=== PATIENT | female | born 1950 | race Caucasian/White ===

== ENCOUNTER 2020-11-23 11:23 | Inpatient (IN) | payer OTHER, MEDICAID ==
[~2020-11-23] VITALS: Ht 160 cm; Wt 76.7 kg
[~2020-11-23 11:23] MED LIST: ADULT LOW DOSE81 MG; AUGMENTIN 875875 MG PO; COREG6.25 MG PO; GLUMETZA1000; GLYBURIDE 5 MG T5 M1 OR; LIPITOR40 MG; LOSARTAN-HCTZ1 EACH; MOBIC7.5 MG; NEURONTIN 300M300 M2 PO; NITROSTAT0.4 M1 SUBLING; NORCO 5-325 TA1 EACH PO; PROAIR HFA8.5 GM PO; PROZAC 20 MG20 MG; PROZAC40 MG; TESSALON PERLE100 MG PO; ULTRAM 50MG TAB50 MG PO; ZANTAC 150MG T150 M1
[2020-11-23 11:25] VITALS: BP 85/42
[2020-11-23 11:46] LABS: ABSOLUTE LYMPHOCYTES 0.6 thou/uL (0.8-5.3); ABSOLUTE MONOCYTES 0.2 thou/uL (0.0-1.2); ABSOLUTE NEUTROPHILS 3.2 thou/uL (1.6-8.1); BASOPHILS 0.5 %; HEMATOCRIT 37.5 % (37.0-47.0); LYMPHOCYTES 15.1 %; MCH 24.7 pg (26.0-34.0); MCV 77.2 fL (80.0-100.0); MONOCYTES 5.5 %; MPV 8.6 fl. (7.2-11.1); NUCLEATED RBCS 0 /100WBC; PLATELET COUNT* 144 thou/uL (150-400); POLYS 78.9 %; RBC 4.86 mil/uL (4.20-5.00); RDW-CV 16.3 % (10.5-14.5); WBC 4.1 thou/uL (4.0-11.0)
[2020-11-23 11:55] LABS: CALCIUM 8.8 mg/dL (8.5-10.1); CREATININE 1.7 mg/dL (0.6-1.3); POTASSIUM 3.5 mmol/L (3.5-5.1)
[2020-11-23 12:00] LABS: ALBUMIN 3.1 g/dL (3.4-5.0); TOTAL BILIRUBIN 0.5 mg/dL (<0.1-1.0); TOTAL PROTEIN 7.4 g/dL (6.4-8.2)
[2020-11-23] MEDS ORDERED: JANUMET 50-1,01 EACH PO (12:09)
[2020-11-23] MEDS ORDERED: JARDIANCE10 MG PO (12:09)
[2020-11-23 16:18] VITALS: BP 104/53
--- NOTE | 2020-11-23 17:10 | EKG ---
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
[2020-11-23 18:41] LABS: URINE BILIRUBIN NEGATIVE (Negative); URINE BLOOD NEGATIVE (Negative); URINE CLARITY CLEAR; URINE COLOR YELLOW; URINE GLUCOSE-RANDOM 3+ (Negative); URINE KETONES NEGATIVE (Negative); URINE LEUKOCYTES-REFLEX NEGATIVE (Negative); URINE NITRITE-REFLEX NEGATIVE (Negative); URINE PROTEIN NEGATIVE (Negative); URINE UROBILINOGEN 0.2 E.U./dl (0.2-1.0)
[2020-11-23 19:45] VITALS: BP 113/54
[2020-11-23 23:08] VITALS: BP 124/53
[2020-11-24 00:44] VITALS: BP 124/56
[2020-11-24 05:11] VITALS: BP 131/47
[2020-11-24 08:00] VITALS: BP 115/71
[2020-11-24 08:27] LABS: ABSOLUTE LYMPHOCYTES 0.5 thou/uL (0.8-5.3); ABSOLUTE MONOCYTES 0.2 thou/uL (0.0-1.2); BASOPHILS 0.1 %; HEMATOCRIT 33.4 % (37.0-47.0); LYMPHOCYTES 13.3 %; MCH 25.1 pg (26.0-34.0); MCHC 32.9 g/dL (28.0-37.0); MCV 76.2 fL (80.0-100.0); MONOCYTES 6.1 %; MPV 8.8 fl. (7.2-11.1); NUCLEATED RBCS 0 /100WBC; PLATELET COUNT* 126 thou/uL (150-400); POLYS 80.5 %; RBC 4.39 mil/uL (4.20-5.00); RDW-CV 16.5 % (10.5-14.5); WBC 3.8 thou/uL (4.0-11.0)
[2020-11-24 08:52] LABS: CALCIUM 8.3 mg/dL (8.5-10.1); CREATININE 1.1 mg/dL (0.6-1.3); POTASSIUM 3.7 mmol/L (3.5-5.1)
[2020-11-24 12:00] VITALS: BP 119/51
--- NOTE | 2020-11-24 12:39 | 2DMMODE ---
[place] [address] 2 D/M-MODE ECHOCARDIOGRAM Name: GM MITCHELL Room: [address] IN [facility]#: [id number] Admission: 11/23/20 Attend Phys: Mando Vidales, Discharge: Date of : 48 Date of Service: 11/24/20 1239 Report #: [id number] THIS REPORT FOR: cc: Tete Gutierrez,Domenic Benavides MD [facility] ~ APPROVED REPORT Study performed: 11/24/2020 10:55:54 EXAM: Comprehensive 2D, Doppler, and color-flow Echocardiogram Patient Location: In-Patient Room #: [facility] Status: routine BSA: 1.64 HR: 58 bpm BP: 131/47 mmHg Rhythm: NSR Other Information Study Quality: Good Indications Hypotension 2D Dimensions IVSd: 8.96 (7-11mm) LVOT Diam: 18.67 (18-24mm) LVDd: 48.05 mm PWd: 8.21 (7-11mm) Ascending Ao: 30.37 (22-36mm) LVDs: 27.92 (25-40mm) Aortic Root: 28.04 mm Volumes Left Atrial Volume (Systole) LA ESV Index: 44.70 mL/m2 Aortic Valve AoV Peak Kevin.: 1.56 m/s AO Peak Gr.: 9.79 mmHg LVOT Max P.04 mmHg AO Mean Gr.: 4.14 mmHg LVOT Mean P.46 mmHg LVOT Max V: 1.23 m/s AO V2 VTI: 35.11 cm LVOT Mean V: 0.70 m/s JAMIE (VTI): 2.24 cm2 LVOT V1 VTI: 28.68 [place] [address] 2 D/M-MODE ECHOCARDIOGRAM Name: GM MITCHELL Room: [address]#: [id number] Admission: 11/23/20 Attend Phys: Mando Vidales, Discharge: Date of : 48 Date of Service: 11/24/20 1239 Report #: [id number] Mitral Valve E/A Ratio: 2.78 MV Decel. Time: 257.55 ms MV E Max Kevin.: 1.00 m/s MV PHT: 74.69 ms MVA (PHT): 2.95 cm2 TDI E/Lateral E': 11.11 E/Medial E': 12.50 Medial E' Kevin.: 0.08 m/s Lateral E' Kevin.: 0.09 m/s Pulmonary Valve PV Peak Kevin.: 1.06 m/s PV Peak Gr.: 4.49 mmHg Tricuspid Valve RAP Estimate: 5.00 mmHg TR Peak Gr.: 23.19 mmHg RVSP: 28.00 mmHg PA Pressure: 28.00 mmHg Left Ventricle The left ventricle is normal size. There is normal LV segmental wall motion. There is normal left ventricular wall thickness. Left ventricular systolic function is normal. LVEF is 60-65%. Transmitral Doppler flow pattern suggests restrictive physiology. Right Ventricle The right ventricle is normal size. The right ventricular systolic function is normal. Atria Left atrium is moderately dilated. The right atrium size is normal. Aortic Valve The aortic valve is normal in structure. No aortic regurgitation is present. There is no aortic valvular stenosis. Mitral Valve There is mitral annular calcification. Trace mitral regurgitation. No evidence of mitral valve stenosis. Tricuspid Valve The tricuspid valve is normal in structure. Trace tricuspid regurgitation. [place] [address] 2 D/M-MODE ECHOCARDIOGRAM Name: PAULA,OPAChristopher Hayward Room: [address]#: [id number] Admission: 11/23/20 Attend Phys: Mando Vidales, Discharge: Date of : 48 Date of Service: 11/24/20 1239 Report #: [id number] Pulmonic Valve The pulmonary valve is normal in structure. There is no pulmonic valvular regurgitation. Great Vessels The aortic root is normal in size. IVC is normal in size and collapses >50% with inspiration. Pericardium There is no pericardial effusion. <Conclusion> The left ventricle is normal size. There is normal left ventricular wall thickness. Left ventricular systolic function is normal. LVEF is 60-65%. Transmitral Doppler flow pattern suggests restrictive physiology. There is normal LV segmental wall motion. Left atrium is moderately dilated. Trace mitral regurgitation. Trace tricuspid regurgitation. No pulmonary hypertension. IVC is normal in size and collapses >50% with inspiration. <ELECTRONICALLY SIGNED> By: Domenic Bautista MD, FACC 11/24/20 1239 1239 1239 Domenic Bautista MD, FACC /INF
--- NOTE | 2020-11-24 14:35 | NUR ---
Covid positive. Spoke with Pt's dtr via phone. Pt resides at home, grandson lives with her. Pt is normally independent. No DME. No home o2. Hx of HH post knee replacement several years ago. No hx of SNF. Pt is not vaccinated, per dtr, Pt was scheduled to get the shot next week. Pt's grandson is also covid positive, but doing ok. Pt currently on 2L o2, continue to wean. Ex ox at dc to assess for home o2 needs.
[2020-11-24 16:00] VITALS: BP 124/85
--- NOTE | 2020-11-24 17:05 | NUR ---
PATIENT RESTING IN BED. PATIENT DENIES ANY PAIN. PATIENT HAS HAD INCREASED OXYGEN NEEDS TODAY AND AT 7L/NC. PATIENT IS SHORT OF AIR WITH EXERTION. PATIENT HAS GOOD APPETITE. PATIENT DENIES ANY NEEDS AT THIS TIME. CALL LIGHT WITHIN REACH.
[2020-11-24 20:00] VITALS: BP 135/55
[2020-11-25 00:34] VITALS: BP 111/48
[2020-11-25 04:21] VITALS: BP 114/60
[2020-11-25 04:41] LABS: HEMATOCRIT 32.6 % (37.0-47.0); HEMOGLOBIN 10.7 gm/dL (12.0-15.0); MCH 25.2 pg (26.0-34.0); MCV 76.4 fL (80.0-100.0); MPV 8.9 fl. (7.2-11.1); RBC 4.27 mil/uL (4.20-5.00); RDW-CV 16.3 % (10.5-14.5); WBC 9.2 thou/uL (4.0-11.0)
[2020-11-25 05:13] LABS: CALCIUM 8.5 mg/dL (8.5-10.1); POTASSIUM 3.7 mmol/L (3.5-5.1)
[2020-11-25 08:00] VITALS: BP 125/63
[2020-11-25 12:00] VITALS: BP 137/53
--- NOTE | 2020-11-25 15:22 | NUR ---
Pt on 7L. Ex ox completed yesterday, Pt requiring 10L o2 with activity, continue to wean. Anticipate dc in 1-2 days. Updated dtr
[2020-11-25 17:46] VITALS: BP 126/62
--- NOTE | 2020-11-25 17:48 | NUR ---
PATIENT RESTING IN BED. PATIENT DENIES ANY PAIN. PATIENT IS UP AD [place]AY[place] TO [facility]. PATIENT IS ON 7L/NC BUT DOES DESAT INTO THE 80'S WITH ACTIVITY. PATIENT HAS FAIR APPETITE. PATIENT DENIES ANY NEEDS AT THIS TIME. CALL LIGHT WITHIN REACH.
[2020-11-26] VITALS (12 sets, daily range): BP systolic 79–151; BP diastolic 35–68
[2020-11-26 08:37] LABS: CALCIUM 8.5 mg/dL (8.5-10.1); CREATININE 0.8 mg/dL (0.6-1.3); POTASSIUM 3.5 mmol/L (3.5-5.1)
[2020-11-26 08:46] LABS: BE 1.9 mmol/L (-2 to +3); pH 7.458 (7.340-7.450)
--- NOTE | 2020-11-26 10:00 | NUR ---
PATIENT HAD REPORTS OF CHEST PAIN AT SHIFT CHANGE. STATED PRESSURE TO MIDDLE CHEST 6/10. EKG OBTAINED AND DR LYONS NOTIFIED. PATIENT GIVEN 1 NITRO SUBL BUT BLOOD PRESSURE AND O2 SATS DROPPED. RAPID RESPONSE CALLED. RT PLACED PATIENT ON NRB MASK AND EVENTUALLY HHFC. CHEST XRAY, ABG'S, REPEAT EKG DONE. CARDIOLOGY CONSULTED AND ROUNDED ON PATIENT. PATIENT GIVEN TYLENOL, PROTONIX AND DECADRON ORDERED. PATIENT STATES SOME RELIEF AND IS RESTING COMFORTABLY IN BED AT THIS TIME.
[2020-11-26 12:11] LABS: CHOLESTEROL 120 mg/dL (<200); HDL CHOLESTEROL 44 mg/dL (>40); LDL CHOLESTEROL 58 mg/dL (<100); SERUM ASSESSMENT Clear; TC:HDL 2.7 Ratio (Not establshd); TRIGLYCERIDE 92 mg/dL (<150); VLDL 18 mg/dL (<40)
--- NOTE | 2020-11-26 14:53 | NUR ---
Anticipate dc in a few days. Rapid response called, cards consulted. On 7L, wean, repeat ex ox at dc.
--- NOTE | 2020-11-26 16:19 | EKG ---
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
--- NOTE | 2020-11-26 17:23 | NUR ---
PATIENT IS RESTING IN BED AT THIS TIME. PATIENT IS UP STANDBY ASSIST TO COMMODE. PATIENT IS UP HEATED HIGH FLOW WITH SATS IN THE UPPER 90'S. PATIENT HAD COMPLAINTS OF CHEST PAIN THIS AM, WHICH HAS RESOLVED AT THIS TIME. PATIENT REFUSED BREAKFAST AND LUNCH BUT IS CURRENTLY EATING DINNER. PATIENT DENIES ANY NEEDS AT THIS TIME. CALL LIGHT WITHIN REACH.
[2020-11-27 00:15] VITALS: BP 116/51
--- NOTE | 2020-11-27 04:27 | NUR ---
PT RESTED WELL ALL SHIFT, NO REPORTS OF ANY CHEST PAIN OR DISCOMFORT. HHFC 20L ON WHILE SLEEPING, SINUS RHYTHM/CHRIS ON MONTIOR. RECEIVED MEDS SCHEDULED. NO NEED FOR ANY PAIN OR NAUSEA MEDS. WILL CONTINUE TO MONITOR.
[2020-11-27 04:34] VITALS: BP 138/55
[2020-11-27 05:22] LABS: HEMATOCRIT 32.7 % (37.0-47.0); HEMOGLOBIN 10.9 gm/dL (12.0-15.0); MCH 25.5 pg (26.0-34.0); MCHC 33.5 g/dL (28.0-37.0); MCV 76.2 fL (80.0-100.0); MPV 8.8 fl. (7.2-11.1); RBC 4.28 mil/uL (4.20-5.00); RDW-CV 16.4 % (10.5-14.5); WBC 8.4 thou/uL (4.0-11.0)
[2020-11-27 05:42] LABS: CALCIUM 8.2 mg/dL (8.5-10.1); CREATININE 0.9 mg/dL (0.6-1.3); POTASSIUM 3.1 mmol/L (3.5-5.1)
[2020-11-27 08:00] VITALS: BP 97/55
[2020-11-27 12:30] VITALS: BP 140/86
--- NOTE | 2020-11-27 14:39 | EKG ---
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1950 Requested By: Gavin Melton Order Number: [id number] Minna MD: Shayne Cain Measurements Intervals [place] Rate: 138 P: [place]: QRS: 39 QRSD: 83 T: -84 QT: 288 QTc: 437 Interpretive Statements Atrial fibrillation Nonspecific repol abnormality, diffuse leads Baseline wander in lead(s) V1,V2 Compared to ECG 11/26/2020 09:15:29 Early repolarization now present Atrial fibrillation is noted Sinus rhythm no longer present ST (T wave) deviation no longer present Electronically Signed On 11-27-2020 14:39:29 CDT by Shayne Cain [email or web address] <ELECTRONICALLY SIGNED> By: Shayne Cain MD, [facility] 11/27/20 1439 1204 1204 Shayne Cain MD, [facility] /EPI
--- NOTE | 2020-11-27 15:04 | NUR ---
Pt up to 25-30L. Updated Pt's dtr. No weekend dc planned.
[2020-11-27 16:40] VITALS: BP 117/75
--- NOTE | 2020-11-27 19:29 | NUR ---
RECEIVED RPEORT AROUND 0715. ASSUMED CARE. VS AND ASSESSMENT CHARTED. IV INTACT RIGHT AC, RIGHT FOREARM. HEART MONITOR ATTACHED AT AFIB. MEDS GIVEN PER MAR. HOURLY ROUNDING PERFORMED. FAMILY UPDATED. ISOLATION INTACT. CALL LIGHT WITH IN REACH.
[2020-11-27 20:33] VITALS: BP 117/80
[2020-11-28 00:23] VITALS: BP 117/72
--- NOTE | 2020-11-28 04:25 | NUR ---
AFIB STILL MONITORED, AMIODARONE DRIP AT 17ML/HR - HR 100-110 THIS SHIFT. SHE IS RESTING COMFORTABLY. HHFC AT 95%. SHE IS UP STANDBY TO RESTROOM. RECEIVED ALL MEDS SCHEDULED. SINUS TACH ON MONITOR.
[2020-11-28 04:35] VITALS: BP 138/80
[2020-11-28 08:00] VITALS: BP 145/93
[2020-11-28 10:50] LABS: ALBUMIN 2.1 g/dL (3.4-5.0); CALCIUM 8.3 mg/dL (8.5-10.1); CREATININE 0.8 mg/dL (0.6-1.3); POTASSIUM 3.5 mmol/L (3.5-5.1); TOTAL PROTEIN 6.1 g/dL (6.4-8.2)
[2020-11-28 12:28] VITALS: BP 132/67
[2020-11-28 16:00] VITALS: BP 136/69
--- NOTE | 2020-11-28 21:39 | NUR ---
I ASSUMED CARE OF THE PATIENT AT 0700. SHE IS ALERT AND ORIENTED X4 AND IS UP AD GAYLE. BED IS IN THE LOW LOCKED POSITION AND CALL LIGHT IS IN REACH. PATIENT NEEDS ARE MADE DURING HOURLY ROUNDING AND PAIN IS MANAGED WITH PRN MEDS. IN TOUCH WITH DAUGHTER FROM [place] TODAY. BLOOD GLUCOSE IS MONITORED. SHE HAD A NICE LONG NAP TODAY AND OXYGENATION WAS MAINTAINED. DIET IS POOR, BUT SHE LIKES FRUIT CUPS AND SHERBET. AMIODARONE DRIP IS RUNNING. CARDIOLOGY SAW THE PATIENT. WILL CONTINUE TO MONITOR.
[2020-11-28 21:45] VITALS: BP 144/81
[2020-11-29 00:34] VITALS: BP 140/78
--- NOTE | 2020-11-29 03:44 | NUR ---
ASSUMED PT CARE AT APPROX 1930. PT IS A/OX4. VSS. PT IS TRACING AFIB ON THE SUPERVISOR SAWMILL. PT IS ON AMIODARONE GTT. HR IS CONTROLLED BETWEEN 80-90BPM. PT IS ON HHFNC 30L/FIO2 100%. PT O2 SATS DECREASE TO 88-90% WHILE SLEEPING. PT USED CALL LIGHT TO NOTIFY STAFF THAT HER IV IN THE RFA "CAME OUT AND WAS BLEEDING." NEW IV PLACED TO LAC, 22G. PT RESTED DURING THE NOC. NO C/O VOICED. MEDICATIONS ADMINISTERED PRESCRIBED. HOURLY ROUNDS COMLETE CHARTED. FALL PRECAUTIONS IN PLACE FOR SAFETY. CALL LIGHT WITHIN REACH. NO ACUTE CHANGES THIS SHIFT. WILL CONT. TO MONITOR.
[2020-11-29 04:18] VITALS: BP 124/86
[2020-11-29 08:00] VITALS: BP 138/78
[2020-11-29 12:35] VITALS: BP 120/77
[2020-11-29 18:32] VITALS: BP 134/83
[2020-11-29 21:47] VITALS: BP 137/96
--- NOTE | 2020-11-29 21:50 | NUR ---
patient had a quiet day. remains on heated melva flow oxygen. patient says she feels better today. Did complain of headache in the evening. Patient rests in bed, but uses bsc as needed. Continue to monitor patient. atrial fibrillation continues. amiodarone drip off today. Started on po.
[2020-11-30] VITALS: BP 134/71
[2020-11-30 04:00] VITALS: BP 130/75
[2020-11-30 04:26] LABS: pH 7.469 (7.340-7.450)
[2020-11-30 04:28] LABS: PO2 55.7 mmHg (75.0-100.0)
[2020-11-30 04:36] LABS: HEMATOCRIT 35.5 % (37.0-47.0); HEMOGLOBIN 11.6 gm/dL (12.0-15.0); MCH 24.8 pg (26.0-34.0); MCHC 32.7 g/dL (28.0-37.0); MCV 75.9 fL (80.0-100.0); MPV 8.8 fl. (7.2-11.1); NUCLEATED RBCS 0 /100WBC; PLATELET COUNT* 289 thou/uL (150-400); RBC 4.68 mil/uL (4.20-5.00); RDW-CV 16.5 % (10.5-14.5); WBC 12.6 thou/uL (4.0-11.0)
[2020-11-30 05:03] LABS: CALCIUM 8.2 mg/dL (8.5-10.1); CREATININE 0.9 mg/dL (0.6-1.3); POTASSIUM 3.5 mmol/L (3.5-5.1); TOTAL BILIRUBIN 0.5 mg/dL (<0.1-1.0); TOTAL PROTEIN 6.1 g/dL (6.4-8.2)
[2020-11-30 06:20] LABS: ABSOLUTE LYMPHOCYTES 0.6 thou/uL (0.8-5.3); ABSOLUTE MONOCYTES 0.6 thou/uL (0.0-1.2); ABSOLUTE NEUTROPHILS 11.3 thou/uL (1.6-8.1); ANISOCYTOSIS 1+; HYPOCHROMASIA 1+; OVALOCYTES 1+; PLATELET ESTIMATE ADEQUATE; POIKILOCYTOSIS 1+
--- NOTE | 2020-11-30 06:59 | NUR ---
Patient is pleasant and slept well. Alert and orientated. Switched from opti flow to BIPAP for better oxygination. Stand by assist. Will continue to care.
--- NOTE | 2020-11-30 10:53 | EKG ---
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 : 1950 Requested By: Hiral Ryan Order Number: [id number] Reading MD: Terrence Gordon Measurements Intervals [place] Rate: 111 P: [place]: QRS: 34 QRSD: 79 T: 228 QT: 369 QTc: 502 Interpretive Statements Atrial fibrillation Borderline repolarization abnormality Prolonged QT interval Compared to ECG 11/27/2020 12:04:37 Prolonged QT interval now present rate has slowed Electronically Signed On 11-30-2020 10:53:13 CDT by Terrence Gordon [email or web address] <ELECTRONICALLY SIGNED> By: eTrrence Gordon MD, [facility] 11/30/20 1053 1044 1044 Terrence Gordon MD, [facility] /EPI
[2020-11-30 12:00] VITALS: BP 151/89
--- NOTE | 2020-11-30 14:12 | NUR ---
Nutrition: Pt admitted to COVID unit. Assessed for LOS. Spoke with her RN. Pt is not eating much. RN agreed to try supplement - RD will order. Regular diet. Wt: 136#. H/o HTN, afib. Labs: alb 2, prealb 10.8, BG 110-244. Inadequate oral intake R/T poor appetite AEB RN report. Glucerna shakes daily. GOALS: appetite/intake increase to >60% of meals/supplements, no wt loss. Mild risk.
--- NOTE | 2020-11-30 15:15 | NUR ---
MOVE PATIENT TO ROOM 103 ON HIGH FLOW 55 AT 100%.
[2020-11-30 16:00] VITALS: BP 122/62
--- NOTE | 2020-11-30 16:01 | NUR ---
Pt o2 needs up to 50L. Eating well, in good spirits. Updated Pt's dtr.
--- NOTE | 2020-11-30 18:54 | NUR ---
PATIENT HAD A QUIET DAY. REMINS ON O2 HIGH FLOW 55 AND 100 %. PATIENT IS VERY PLEASANT, AND RESTING QUIETLY MOST OF THE DAY. IV PATIENT LAC.
[2020-11-30 19:30] VITALS: BP 119/63
[2020-12-01 00:47] VITALS: BP 140/67
[2020-12-01 04:29] VITALS: BP 140/80
--- NOTE | 2020-12-01 04:32 | NUR ---
ASSUMED CARE FROM DAY SHIFT PT RESTING IN BED WITH OPTIFLOW SAT 95% DENIES SOA , UP TO BSC SAT DECREASED TO 86 % . HR 80 FARM OPERATIONS TECHNICAL DIRECTOR SHOWS AFIB. BIPAP PLACED 100 % SAT 94 %. PT SAT DECREASED 87 % AFTER REQUESTING WATER TO DRINK. SAT% 87-90 PT RESTED WELL THROUGHOUT HOURLY ROUNDS,WILL REPORT CHANGES.
[2020-12-01 08:00] VITALS: BP 118/70
[2020-12-01 12:00] VITALS: BP 112/74
--- NOTE | 2020-12-01 15:14 | NUR ---
Pt doing worse today. On bipap 55L 100% fio2. ? need for intubation.
[2020-12-01 16:00] VITALS: BP 117/63
[2020-12-02] VITALS (8 sets, daily range): BP systolic 123–152; BP diastolic 50–84
[2020-12-02 05:05] LABS: ABSOLUTE LYMPHOCYTES 0.3 thou/uL (0.8-5.3); ABSOLUTE MONOCYTES 0.4 thou/uL (0.0-1.2); ABSOLUTE NEUTROPHILS 14.7 thou/uL (1.6-8.1); BASOPHILS 0.2 %; HEMATOCRIT 34.2 % (37.0-47.0); HEMOGLOBIN 11.4 gm/dL (12.0-15.0); LYMPHOCYTES 2.2 %; MCH 25.1 pg (26.0-34.0); MCHC 33.4 g/dL (28.0-37.0); MCV 75.2 fL (80.0-100.0); MONOCYTES 2.3 %; NUCLEATED RBCS 0 /100WBC; PLATELET COUNT* 237 thou/uL (150-400); POLYS 95.3 %; RBC 4.55 mil/uL (4.20-5.00); RDW-CV 16.4 % (10.5-14.5); WBC 15.5 thou/uL (4.0-11.0)
[2020-12-02 05:45] LABS: ALBUMIN 2.3 g/dL (3.4-5.0); CALCIUM 8.3 mg/dL (8.5-10.1); CREATININE 0.9 mg/dL (0.6-1.3); MAGNESIUM 1.8 mg/dL (1.8-2.4); POTASSIUM 3.3 mmol/L (3.5-5.1); TOTAL BILIRUBIN 0.7 mg/dL (<0.1-1.0); TOTAL PROTEIN 5.9 g/dL (6.4-8.2)
--- NOTE | 2020-12-02 11:00 | NUR ---
The patient is alert.Able to make needs known. AFIB on the monitor. She was sitting in the recliner. Call light within reach. Stand by to the BSC.
[2020-12-02 15:17] LABS: POTASSIUM 3.8 mmol/L (3.5-5.1)
[2020-12-02 15:55] LABS: CALCIUM 8.8 mg/dL (8.5-10.1)
--- NOTE | 2020-12-02 16:02 | NUR ---
Pt stable on bipap 60L 100% fio2.
[2020-12-03] VITALS (62 sets, daily range): BP systolic 77–138; BP diastolic 49–82
--- NOTE | 2020-12-03 02:53 | NUR ---
Pt noted to b edesaturating into lower 80s on BIPAP settings of AVAPS. RT notified, mask adjusted several times, and replaced. Pt. switched to heated HF as well at 60L/100% FiO2. O2 sats remain in the low 90's. Dr. Stephen notified and orders received to chage BIPAP settings: AVAPS tvol 420 Pmin of 7/EPAP of 5. Pt. currently has 90% O2 sats. Will continue to monitor.
--- NOTE | 2020-12-03 05:33 | NUR ---
Pt O2 sats continue to remain below 88%. notified, and per Dr. Stephen, pt to be intubated. Rapid called and lead worker of housekeeping and laundry notified. Dr. Malagon at bedside from ED for intubation. 100mg of Succinylcholine and 15mg of Etomidate ordered and given. Pt intubated at 0415. Pt. bagged initially by RT, and hooked up to ventilator. Additional sedation given, a total of 50mg of Fentanyl, and 7mg of Versed. ICU nurse also at bedside, report given to Tio COLEY. Xray completed at bedside and pt. transported to ICU via bed.
[2020-12-03 06:27] LABS: BE 4.6 mmol/L (-2 to +3); PCO2 43.9 mmHg (35.0-45.0); pH 7.442 (7.340-7.450)
[2020-12-03 06:29] LABS: PO2 48.4 mmHg (75.0-100.0)
[2020-12-03 08:22] LABS: ABSOLUTE BASOPHILS 0.1 thou/uL (0.0-0.2); ABSOLUTE LYMPHOCYTES 0.4 thou/uL (0.8-5.3); ABSOLUTE MONOCYTES 0.7 thou/uL (0.0-1.2); ABSOLUTE NEUTROPHILS 19.9 thou/uL (1.6-8.1); BASOPHILS 0.6 %; HEMATOCRIT 34.9 % (37.0-47.0); HEMOGLOBIN 11.2 gm/dL (12.0-15.0); MCH 24.6 pg (26.0-34.0); MCHC 32.1 g/dL (28.0-37.0); MCV 76.6 fL (80.0-100.0); MONOCYTES 3.2 %; MPV 8.8 fl. (7.2-11.1); NUCLEATED RBCS 0 /100WBC; PLATELET COUNT* 284 thou/uL (150-400); POLYS 94.2 %; RBC 4.56 mil/uL (4.20-5.00); RDW-CV 16.6 % (10.5-14.5); WBC 21.1 thou/uL (4.0-11.0)
[2020-12-03 08:30] LABS: ALBUMIN 2.3 g/dL (3.4-5.0); CALCIUM 8.9 mg/dL (8.5-10.1); CREATININE 0.9 mg/dL (0.6-1.3); MAGNESIUM 2.2 mg/dL (1.8-2.4); PHOSPHORUS* 3.1 mg/dL (2.5-4.9); POTASSIUM 4.6 mmol/L (3.5-5.1); TOTAL BILIRUBIN 0.7 mg/dL (<0.1-1.0); TOTAL PROTEIN 6.7 g/dL (6.4-8.2)
--- NOTE | 2020-12-03 09:42 | EKG ---
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
--- NOTE | 2020-12-03 10:09 | NUR ---
Pt moved to ICU, now on vent. CM spoke with Pt's dtr, Gretchen, dtr to go to Pt's home to get Advanced Directive/DPOA and bring to the hospital. Pt's dtr in [place] is flying in tomorrow.
[2020-12-03 12:45] LABS: BE 4.7 mmol/L (-2 to +3); PCO2 40.1 mmHg (35.0-45.0); PO2 62.5 mmHg (75.0-100.0); pH 7.472 (7.340-7.450)
--- NOTE | 2020-12-03 15:16 | CON ---
[address] [address] CONSULTATION Name: PAULAGM Room: [address] IN M.R.#: [id number] Admission: 11/23/20 Attend Phys: Mando Vidales MD Discharge: Date of : 48 Report #: [id number] THIS REPORT FOR: cc: Tete Gutierrez,Anil Badillo MD ~ DATE OF CONSULTATION: 12/01/2020 REQUESTING PHYSICIAN: Dr. Melton. INDICATION FOR CONSULTATION: Acute hypoxemic respiratory failure secondary to COVID-19. HISTORY OF PRESENT ILLNESS: This 70-year-old female with past medical history is as mentioned below. This does not include a history of a cardiac or respiratory disease. The patient at this time admitted on 11/23, presentation is with shortness of breath. The patient initially was on 2 liters nasal cannula to maintain O2 saturation in the low 90s. There has been a progressive increase in her oxygen needs to the point that currently she is on a heated high-flow nasal cannula 100% FIO2 alternating between it and a BiPAP. The patient does remain short of breath. She is having cough. There is not much sputum. There is no chest pain. There is only mild swelling of lower extremities. There is no calf pain. She does not have upper respiratory complaints at this time. REVIEW OF SYSTEMS: The patient's review of systems for 12 points is negative except as mentioned above. The patient's family has, I understand, called Dr. Melton today and they are requesting that we consider use of convalescent plasma. PAST MEDICAL HISTORY: Diabetes, osteoarthritis, carpal tunnel surgery, GERD, dilatation and curettage, recent ovary removal, hypertension. SOCIAL HISTORY: There is no known history of smoking, ethanol abuse or drug abuse. CURRENT MEDICATIONS: The list is in [facility] reviewed. HOME MEDICATIONS: List in [facility] reviewed. ALLERGIES: CODEINE. FAMILY HISTORY: No pertinent family history. PHYSICAL EXAMINATION: [place] [address] CONSULTATION Name: GM MITCHELL Room: [address] IN [facility].#: [id number] Admission: 11/23/20 Attend Phys: Mando Vidales MD Discharge: Date of : 48 Report #: [id number] GENERAL: She is fully awake, provides a limited history. VITAL SIGNS: Has a pulse of 100 and a blood pressure of 117/63. She is saturating 95%, but she is also on a 100% FiO2 on a heated high-flow nasal cannula 55 liters flow. She is afebrile with a temperature of 36.1. HEENT: Normocephalic and atraumatic. NECK: Does not show raised JVP asymmetry, mass or lymph nodes. CHEST: Symmetrical expansion on inspection and palpation. On auscultation, breath sounds are bilaterally equal. I do not hear any added sounds. HEART: Irregular, but there is no murmur. ABDOMEN: Soft and nontender. EXTREMITIES: Lower extremities show minimal edema only. There is no calf tenderness. SKIN: Dry and intact. NEUROLOGIC: Moves all extremities bilaterally equally and spontaneously with no focal deficit identified. LABORATORY DATA: The patient's chest x-rays, which show progressively worsening infiltrates in [facility] reviewed. The patient's lab work is in [facility] and are also reviewed. ASSESSMENT AND PLAN: 1. Acute hypoxemic respiratory failure secondary to COVID-19. Recommend continue to titrate oxygen. Also, recommend continuing with BiPAP while asleep and p.r.n. I adjusted the BiPAP settings. Recommend avoiding sleeping supine. If able to prone, that is preferable out of bed to chair. 2. COVID-19. We will continue with corticosteroids. She has received an additional dose of Solu-Medrol today. Therefore, I did not change the scheduled dose of dexamethasone, we will reassess and will consider increasing it tomorrow. The patient has received 5 doses of remdesivir considering severe hypoxemia. Would recommend giving her 5 more doses as well. The patient's family, I understand, requests that we administer convalescent plasma. There are both risks and benefits of administration of convalescent plasma, opinions regarding this vary. As the patient's family desired that we administer, I will go ahead and order one unit today and we will consider another unit of convalescent plasma tomorrow morning. I also recommend giving her Actemra; however, the same is not available at this time. 3. Pulmonary infiltrates. These have progressively increased on chest x-rays. Also, note that there is also mention of the patient having recent ovary removal, which means that she may have been in the hospital recently. I was not aware of this when I saw the patient. I will investigate this further. Also, we will see response to Lasix she has received today. If she fails to improve then I will be inclined to broaden antibiotics. At this point, she has already been adequately treated with erythromycin, therefore I discontinued and I continued with ceftriaxone. [address] [address] CONSULTATION Name: GM MITCHELL Room: [address] IN [facility]#: [id number] Admission: 11/23/20 Attend Phys: Mando Vidales MD Discharge: Date of : 48 Report #: [id number] 4. Fluid overload. Already received Lasix as above. I will follow response to recent echocardiogram, which shows a left ventricular ejection fraction of 60-65% without elevation in right heart pressures in [employer] reviewed. 5. Paroxysmal atrial fibrillation. Cardiology service on records. Note that she is on amiodarone now, also on a significant dose of Lopressor at 100 mg b.i.d. and she is anticoagulated. 6. Hypokalemia. I will go ahead and give her 40 mEq of potassium now. She likely will need more potassium tomorrow. Also, watch magnesium level. 7. History of diabetes. Watch blood glucoses. 8. GI prophylaxis, on Protonix. 9. C. difficile prophylaxis. We will add Lactinex. The patient is critically ill at this time. Total time spent providing critical care to this patient today exceeds 42 minutes. <ELECTRONICALLY SIGNED> By: Anil Stephen MD 12/03/20 1516 1701 [id number] Stephen MD /nt
--- NOTE | 2020-12-03 15:16 | NUR ---
OGT INSERTED, CONFIRMED WITH X-RAY. CENTRAL LINE INSERTED BY DR VAUGHN AND ARTERIAL LINE BY DR MEZA AT THE BEDSIDE. PT PRONED AT 1310, TOLERATED WELL.
--- NOTE | 2020-12-03 16:02 | NUR ---
ICU ROUNDS: VENT AT 100% SEDATED. PEEP 12. CENTRAL LINE PLACED.
[2020-12-04] VITALS (42 sets, daily range): BP systolic 89–202; BP diastolic 48–196
[2020-12-04 05:26] LABS: ABSOLUTE LYMPHOCYTES 0.3 thou/uL (0.8-5.3); ABSOLUTE MONOCYTES 0.6 thou/uL (0.0-1.2); ABSOLUTE NEUTROPHILS 15.9 thou/uL (1.6-8.1); BASOPHILS 0.1 %; HEMATOCRIT 29.2 % (37.0-47.0); HEMOGLOBIN 9.3 gm/dL (12.0-15.0); LYMPHOCYTES 1.6 %; MCH 24.4 pg (26.0-34.0); MCHC 31.8 g/dL (28.0-37.0); MCV 76.7 fL (80.0-100.0); MONOCYTES 3.5 %; MPV 8.9 fl. (7.2-11.1); NUCLEATED RBCS 0 /100WBC; PLATELET COUNT* 215 thou/uL (150-400); POLYS 94.8 %; RBC 3.81 mil/uL (4.20-5.00); RDW-CV 16.5 % (10.5-14.5); WBC 16.8 thou/uL (4.0-11.0)
[2020-12-04 05:43] LABS: ALBUMIN 2.4 g/dL (3.4-5.0); CALCIUM 8.3 mg/dL (8.5-10.1); CREATININE 1.1 mg/dL (0.6-1.3); MAGNESIUM 2.2 mg/dL (1.8-2.4); POTASSIUM 4.8 mmol/L (3.5-5.1); TOTAL BILIRUBIN 0.5 mg/dL (<0.1-1.0)
[2020-12-04 08:13] LABS: BE 4.3 mmol/L (-2 to +3); PCO2 40.5 mmHg (35.0-45.0); pH 7.464 (7.340-7.450)
--- NOTE | 2020-12-04 12:50 | NUR ---
Case and plan of care reviewed with MD each weekday during patient's length of stay. Continue plan of care per MD orders for current dx. Pt remains on vent 80% FiO2. CM will continue to follow.
[2020-12-04 13:55] LABS: CALCIUM 8.8 mg/dL (8.5-10.1); CREATININE 1.2 mg/dL (0.6-1.3); MAGNESIUM 2.4 mg/dL (1.8-2.4); POTASSIUM 4.4 mmol/L (3.5-5.1)
[2020-12-04 14:55] LABS: BE 3.4 mmol/L (-2 to +3); PCO2 42.3 mmHg (35.0-45.0); PO2 70.7 mmHg (75.0-100.0); pH 7.438 (7.340-7.450)
[2020-12-04 17:55] LABS: HEMATOCRIT 27.8 % (37.0-47.0); HEMOGLOBIN 8.9 gm/dL (12.0-15.0); MCH 24.6 pg (26.0-34.0); MPV 10.1 fl. (7.2-11.1); NUCLEATED RBCS 0 /100WBC; PLATELET COUNT* 170 thou/uL (150-400); RBC 3.61 mil/uL (4.20-5.00); WBC 13.1 thou/uL (4.0-11.0)
[2020-12-04 18:12] LABS: ABSOLUTE LYMPHOCYTES 0.4 thou/uL (0.8-5.3); ABSOLUTE MONOCYTES 0.7 thou/uL (0.0-1.2); ABSOLUTE NEUTROPHILS 12.1 thou/uL (1.6-8.1); ANISOCYTOSIS 2+; HYPOCHROMASIA 1+; OVALOCYTES 1+; PLATELET ESTIMATE ADEQUATE; POIKILOCYTOSIS 2+
[2020-12-05] VITALS (71 sets, daily range): BP systolic 88–145; BP diastolic 48–68
[2020-12-05 05:19] LABS: ABSOLUTE BASOPHILS 0.1 thou/uL (0.0-0.2); ABSOLUTE LYMPHOCYTES 0.2 thou/uL (0.8-5.3); ABSOLUTE MONOCYTES 0.6 thou/uL (0.0-1.2); ABSOLUTE NEUTROPHILS 18.2 thou/uL (1.6-8.1); BASOPHILS 0.4 %; HEMATOCRIT 29.8 % (37.0-47.0); HEMOGLOBIN 9.5 gm/dL (12.0-15.0); LYMPHOCYTES 1.1 %; MCH 24.9 pg (26.0-34.0); MCHC 31.9 g/dL (28.0-37.0); MONOCYTES 3.1 %; MPV 9.2 fl. (7.2-11.1); NUCLEATED RBCS 0 /100WBC; PLATELET COUNT* 169 thou/uL (150-400); POLYS 95.4 %; RBC 3.82 mil/uL (4.20-5.00); RDW-CV 16.4 % (10.5-14.5); WBC 19.1 thou/uL (4.0-11.0)
[2020-12-05 05:33] LABS: ALBUMIN 2.2 g/dL (3.4-5.0); CALCIUM 8.4 mg/dL (8.5-10.1); CREATININE 1.5 mg/dL (0.6-1.3); MAGNESIUM 2.2 mg/dL (1.8-2.4); POTASSIUM 4.2 mmol/L (3.5-5.1); TOTAL BILIRUBIN 0.4 mg/dL (<0.1-1.0); TOTAL PROTEIN 5.7 g/dL (6.4-8.2)
--- NOTE | 2020-12-05 06:00 | NUR ---
0330 PT TURNED SUPINE
[2020-12-05 07:55] LABS: BE -5.4 mmol/L (-2 to +3); PO2 76.7 mmHg (75.0-100.0)
[2020-12-05 07:58] LABS: PCO2 50.1 mmHg (35.0-45.0); pH 7.257 (7.340-7.450)
[2020-12-06] VITALS (72 sets, daily range): BP systolic 94–140; BP diastolic 42–69
[2020-12-06 05:11] LABS: ABSOLUTE BASOPHILS 0.1 thou/uL (0.0-0.2); ABSOLUTE LYMPHOCYTES 0.1 thou/uL (0.8-5.3); ABSOLUTE MONOCYTES 0.3 thou/uL (0.0-1.2); ABSOLUTE NEUTROPHILS 12.4 thou/uL (1.6-8.1); BASOPHILS 0.5 %; HEMATOCRIT 28.4 % (37.0-47.0); LYMPHOCYTES 1.1 %; MCH 24.6 pg (26.0-34.0); MCHC 31.9 g/dL (28.0-37.0); MCV 77.3 fL (80.0-100.0); MONOCYTES 2.7 %; MPV 9.4 fl. (7.2-11.1); NUCLEATED RBCS 0 /100WBC; PLATELET COUNT* 125 thou/uL (150-400); POLYS 95.7 %; RBC 3.68 mil/uL (4.20-5.00); RDW-CV 15.9 % (10.5-14.5)
[2020-12-06 05:50] LABS: ALBUMIN 1.7 g/dL (3.4-5.0); CREATININE 1.1 mg/dL (0.6-1.3); MAGNESIUM 2.2 mg/dL (1.8-2.4); POTASSIUM 4.8 mmol/L (3.5-5.1); TOTAL BILIRUBIN 0.4 mg/dL (<0.1-1.0); TOTAL PROTEIN 4.8 g/dL (6.4-8.2)
--- NOTE | 2020-12-06 07:28 | NUR ---
PT REMAINS INTUBATED AND SEDATED. VSS. MEDICATIONS ADMINSTERED PRESCRIBED. PT UNPRONED THIS MORNING AT 0400. PT TOLERATED WELL. NO ACUTE CHANGES THIS SHIFT. SPOKE WITH PT'S DAUGHTER AND GAVE UPDATE. ASSESSMENTS COMPLETE CHARTED.
[2020-12-06 11:20] LABS: BE -2.1 mmol/L (-2 to +3); PCO2 36.1 mmHg (35.0-45.0); PO2 69.3 mmHg (75.0-100.0); pH 7.407 (7.340-7.450)
--- NOTE | 2020-12-06 14:52 | NUR ---
PT'S [place] CATH OBSTRUCTED, CATH EXCHANGED.
[2020-12-07] VITALS (71 sets, daily range): BP systolic 101–135; BP diastolic 48–61
[2020-12-07 06:34] LABS: ABSOLUTE LYMPHOCYTES 0.2 thou/uL (0.8-5.3); ABSOLUTE MONOCYTES 0.5 thou/uL (0.0-1.2); ABSOLUTE NEUTROPHILS 16.1 thou/uL (1.6-8.1); BASOPHILS 0.2 %; HEMATOCRIT 30.3 % (37.0-47.0); HEMOGLOBIN 9.6 gm/dL (12.0-15.0); LYMPHOCYTES 1.4 %; MCH 24.6 pg (26.0-34.0); MCHC 31.6 g/dL (28.0-37.0); MCV 77.8 fL (80.0-100.0); MONOCYTES 2.8 %; MPV 9.8 fl. (7.2-11.1); NUCLEATED RBCS 0 /100WBC; PLATELET COUNT* 109 thou/uL (150-400); POLYS 95.6 %; RBC 3.89 mil/uL (4.20-5.00); RDW-CV 16.1 % (10.5-14.5); WBC 16.9 thou/uL (4.0-11.0)
[2020-12-07 06:58] LABS: ALBUMIN 2.4 g/dL (3.4-5.0); CALCIUM 8.9 mg/dL (8.5-10.1); CREATININE 1.5 mg/dL (0.6-1.3); MAGNESIUM 2.3 mg/dL (1.8-2.4); PHOSPHORUS* 4.9 mg/dL (2.5-4.9); TOTAL BILIRUBIN 0.4 mg/dL (<0.1-1.0); TOTAL PROTEIN 5.2 g/dL (6.4-8.2)
[2020-12-07 08:14] LABS: BE -1.7 mmol/L (-2 to +3); PCO2 48.9 mmHg (35.0-45.0); PO2 61.3 mmHg (75.0-100.0)
[2020-12-07 09:14] LABS: URINE BILIRUBIN NEGATIVE (Negative); URINE BLOOD 3+ (Negative); URINE CLARITY CLEAR; URINE COLOR YELLOW; URINE GLUCOSE-RANDOM NEGATIVE (Negative); URINE KETONES NEGATIVE (Negative); URINE LEUKOCYTES-REFLEX NEGATIVE (Negative); URINE NITRITE-REFLEX NEGATIVE (Negative); URINE PROTEIN TRACE (Negative); URINE SPECIFIC GRAVITY 1.025 (1.005-1.030); URINE UROBILINOGEN 0.2 E.U./dl (0.2-1.0)
[2020-12-07 09:23] LABS: BACTERIA-REFLEX 1-9 Few /HPF (None Seen); CRYSTALS None Seen /LPF (None Seen); FINE GRANULAR CASTS 4-10 Moderate /LPF (None Seen); HYALINE CASTS >10 Many /LPF (None Seen); SQUAMOUS 0-3 Few /LPF (0-3); URINE RBC >20 Many /HPF (0-2); URINE WBC-REFLEX 0-5 Rare /HPF (0-5)
--- NOTE | 2020-12-07 18:25 | NUR ---
PT SATTING MID 80s TO LOW 90s THIS AM, FIO2 UPTO 100%. VERSED INCREASED TO 8 MG/HR. ABLE TO BRING DOWN FIO2 TO 90% ONCE PRONED. PRONED AT 1530, TOLERATED WELL. TOLERATING TUBE FEEDS. DAUGHTERS UPDATED.
[2020-12-08] VITALS (67 sets, daily range): BP systolic 99–182; BP diastolic 39–171
[2020-12-08 04:57] LABS: HEMATOCRIT 27.4 % (37.0-47.0); HEMOGLOBIN 8.9 gm/dL (12.0-15.0); MCH 25.2 pg (26.0-34.0); MCHC 32.5 g/dL (28.0-37.0); MCV 77.7 fL (80.0-100.0); MPV 9.9 fl. (7.2-11.1); RBC 3.52 mil/uL (4.20-5.00); WBC 20.4 thou/uL (4.0-11.0)
[2020-12-08 05:06] LABS: ALBUMIN 2.6 g/dL (3.4-5.0); CALCIUM 8.3 mg/dL (8.5-10.1); CREATININE 1.8 mg/dL (0.6-1.3); MAGNESIUM 2.3 mg/dL (1.8-2.4); POTASSIUM 5.2 mmol/L (3.5-5.1); TOTAL BILIRUBIN 0.4 mg/dL (<0.1-1.0); TOTAL PROTEIN 5.2 g/dL (6.4-8.2)
--- NOTE | 2020-12-08 09:37 | NUR ---
ICU ROUNDS: PT CONT ON VENT AT 90% SEDATION. TB FEEDING. PRONING.
[2020-12-08 10:16] LABS: BE -5.3 mmol/L (-2 to +3); PO2 83.2 mmHg (75.0-100.0)
[2020-12-08 10:20] LABS: PCO2 66.7 mmHg (35.0-45.0); pH 7.169 (7.340-7.450)
[2020-12-08 13:38] LABS: BE -2.6 mmol/L (-2 to +3); PO2 68.1 mmHg (75.0-100.0)
[2020-12-08 13:42] LABS: PCO2 55.9 mmHg (35.0-45.0); pH 7.264 (7.340-7.450)
--- NOTE | 2020-12-08 17:48 | EKG ---
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1950 Requested By: Terrence Gordon Order Number: [id number] Reading MD: Domenic Bautista Measurements Intervals [place] Rate: 63 P: ID: QRS: 52 QRSD: 93 T: -86 QT: 490 QTc: 502 Interpretive Statements Atrial fibrillation Borderline repolarization abnormality Prolonged QT interval Compared to ECG 12/02/2020 16:13:56 Prolonged QT interval now present T-wave abnormality no longer present Electronically Signed On 12-08-2020 17:48:27 CDT by Domenic Bautista [email or web address] <ELECTRONICALLY SIGNED> By: Domenic Bautista MD, [facility] 12/08/20 1748 0909 8 Domenic Bautista MD, [facility] /EPI
[2020-12-09] VITALS (90 sets, daily range): BP systolic 97–149; BP diastolic 41–72
[2020-12-09 03:34] LABS: HEMATOCRIT 26.8 % (37.0-47.0); HEMOGLOBIN 8.7 gm/dL (12.0-15.0); MCH 25.1 pg (26.0-34.0); MCHC 32.6 g/dL (28.0-37.0); MCV 77.1 fL (80.0-100.0); MPV 9.9 fl. (7.2-11.1); NUCLEATED RBCS 0 /100WBC; PLATELET COUNT* 104 thou/uL (150-400); RBC 3.48 mil/uL (4.20-5.00); RDW-CV 15.7 % (10.5-14.5); WBC 21.4 thou/uL (4.0-11.0)
[2020-12-09 04:06] LABS: ALBUMIN 2.3 g/dL (3.4-5.0); CALCIUM 8.8 mg/dL (8.5-10.1); CREATININE 2.3 mg/dL (0.6-1.3); MAGNESIUM 2.4 mg/dL (1.8-2.4); POTASSIUM 5.4 mmol/L (3.5-5.1); TOTAL BILIRUBIN 0.3 mg/dL (<0.1-1.0); TOTAL PROTEIN 4.9 g/dL (6.4-8.2)
[2020-12-09 05:48] LABS: ABSOLUTE LYMPHOCYTES 0.4 thou/uL (0.8-5.3); ABSOLUTE MONOCYTES 1.1 thou/uL (0.0-1.2); ABSOLUTE NEUTROPHILS 19.9 thou/uL (1.6-8.1); PLATELET ESTIMATE DECREASED
[2020-12-09 05:49] LABS: ANISOCYTOSIS 1+; OVALOCYTES 1+; POIKILOCYTOSIS 1+
[2020-12-09 08:09] LABS: PO2 70.7 mmHg (75.0-100.0)
[2020-12-09 08:10] LABS: pH 7.266 (7.340-7.450)
[2020-12-09 08:11] LABS: PCO2 57.3 mmHg (35.0-45.0)
--- NOTE | 2020-12-09 12:01 | NUR ---
MARY DELAYED, AWAITING MEDICATION TO ARRIVE FROM PHARMACY.
--- NOTE | 2020-12-09 12:52 | NUR ---
Case and plan of care reviewed with MD each weekday during patient's length of stay. Continue plan of care per MD orders for current dx. Remains on vent 90 FiO2 , IV Sedation. Cm will continue to follow for discharge planning needs.
[2020-12-09 13:30] LABS: BE -1.8 mmol/L (-2 to +3); PCO2 48.8 mmHg (35.0-45.0); PO2 75.7 mmHg (75.0-100.0); pH 7.318 (7.340-7.450)
[2020-12-09 13:37] LABS: CALCIUM 8.9 mg/dL (8.5-10.1); CREATININE 2.5 mg/dL (0.6-1.3)
[2020-12-10] VITALS (54 sets, daily range): BP systolic 99–226; BP diastolic 45–136
--- NOTE | 2020-12-10 02:05 | NUR ---
PT PRESENTING WITH PINK FROTHY SPUTUM. BEGAN TO DECLINE IN SAT TO 83. CALLED RT AND DR. BENNETT. ADMINISTERED STAT LASIX. RT PARAMETERS FOR PEEP INCREASED TO 12. STAT CHEST X RAY PERFORMED. PATIENT LEVO INCREASED D/T ADMINISTRATION OF LASIX. WILL CONTINUE TO MONITOR.
[2020-12-10 03:15] LABS: ABSOLUTE BASOPHILS 0.1 thou/uL (0.0-0.2); ABSOLUTE LYMPHOCYTES 0.3 thou/uL (0.8-5.3); ABSOLUTE MONOCYTES 0.8 thou/uL (0.0-1.2); ABSOLUTE NEUTROPHILS 25.3 thou/uL (1.6-8.1); BASOPHILS 0.4 %; HEMATOCRIT 27.5 % (37.0-47.0); HEMOGLOBIN 8.7 gm/dL (12.0-15.0); LYMPHOCYTES 1.2 %; MCH 24.6 pg (26.0-34.0); MCHC 31.7 g/dL (28.0-37.0); MCV 77.5 fL (80.0-100.0); MONOCYTES 2.9 %; MPV 10.8 fl. (7.2-11.1); NUCLEATED RBCS 0 /100WBC; PLATELET COUNT* 100 thou/uL (150-400); POLYS 95.5 %; RBC 3.55 mil/uL (4.20-5.00); WBC 26.5 thou/uL (4.0-11.0)
[2020-12-10 03:28] LABS: ALBUMIN 2.1 g/dL (3.4-5.0); CALCIUM 8.6 mg/dL (8.5-10.1); CREATININE 2.9 mg/dL (0.6-1.3); MAGNESIUM 2.4 mg/dL (1.8-2.4); POTASSIUM 5.8 mmol/L (3.5-5.1); TOTAL BILIRUBIN 0.4 mg/dL (<0.1-1.0); TOTAL PROTEIN 4.7 g/dL (6.4-8.2)
[2020-12-10 08:12] LABS: BE -5.1 mmol/L (-2 to +3)
[2020-12-10 08:16] LABS: PCO2 58.1 mmHg (35.0-45.0); pH 7.214 (7.340-7.450)
[2020-12-10 14:11] LABS: BE -3.6 mmol/L (-2 to +3)
[2020-12-10 14:18] LABS: PCO2 52.2 mmHg (35.0-45.0); pH 7.271 (7.340-7.450)
[2020-12-10 15:21] LABS: CALCIUM 8.8 mg/dL (8.5-10.1); CREATININE 3.2 mg/dL (0.6-1.3)
[2020-12-10 17:12] LABS: BE -3.7 mmol/L (-2 to +3); PCO2 44.7 mmHg (35.0-45.0); PO2 75.4 mmHg (75.0-100.0); pH 7.317 (7.340-7.450)
[2020-12-11] VITALS (58 sets, daily range): BP systolic 77–176; BP diastolic 43–76
[2020-12-11 00:19] LABS: HEMATOCRIT 26.9 % (37.0-47.0); HEMOGLOBIN 8.8 gm/dL (12.0-15.0); MCH 25.1 pg (26.0-34.0); MCHC 32.8 g/dL (28.0-37.0); MCV 76.6 fL (80.0-100.0); RBC 3.52 mil/uL (4.20-5.00); RDW-CV 16.2 % (10.5-14.5); WBC 25.3 thou/uL (4.0-11.0)
[2020-12-11 00:25] LABS: CALCIUM 8.6 mg/dL (8.5-10.1); CREATININE 2.4 mg/dL (0.6-1.3); MAGNESIUM 2.2 mg/dL (1.8-2.4); PHOSPHORUS* 3.6 mg/dL (2.5-4.9)
[2020-12-11 00:26] LABS: POTASSIUM 4.9 mmol/L (3.5-5.1)
[2020-12-11 04:28] LABS: ABSOLUTE LYMPHOCYTES 0.4 thou/uL (0.8-5.3); ABSOLUTE MONOCYTES 0.8 thou/uL (0.0-1.2); ABSOLUTE NEUTROPHILS 23.7 thou/uL (1.6-8.1); BASOPHILS 0.2 %; HEMATOCRIT 26.1 % (37.0-47.0); HEMOGLOBIN 8.8 gm/dL (12.0-15.0); LYMPHOCYTES 1.4 %; MCH 25.4 pg (26.0-34.0); MCHC 33.7 g/dL (28.0-37.0); MCV 75.4 fL (80.0-100.0); MONOCYTES 3.2 %; MPV 9.9 fl. (7.2-11.1); NUCLEATED RBCS 0 /100WBC; PLATELET COUNT* 110 thou/uL (150-400); POLYS 95.2 %; RBC 3.47 mil/uL (4.20-5.00); RDW-CV 16.2 % (10.5-14.5); WBC 24.9 thou/uL (4.0-11.0)
[2020-12-11 05:00] LABS: ALBUMIN 2.2 g/dL (3.4-5.0); CALCIUM 8.7 mg/dL (8.5-10.1); CREATININE 1.9 mg/dL (0.6-1.3); MAGNESIUM 2.2 mg/dL (1.8-2.4); PHOSPHORUS* 3.6 mg/dL (2.5-4.9); POTASSIUM 4.6 mmol/L (3.5-5.1); TOTAL BILIRUBIN 0.4 mg/dL (<0.1-1.0); TOTAL PROTEIN 4.9 g/dL (6.4-8.2)
[2020-12-11 08:27] LABS: HEMATOCRIT 30.1 % (37.0-47.0); HEMOGLOBIN 9.8 gm/dL (12.0-15.0); MCH 24.9 pg (26.0-34.0); MCHC 32.5 g/dL (28.0-37.0); MCV 76.7 fL (80.0-100.0); MPV 9.9 fl. (7.2-11.1); RBC 3.93 mil/uL (4.20-5.00); RDW-CV 15.8 % (10.5-14.5); WBC 34.6 thou/uL (4.0-11.0)
[2020-12-11 08:33] LABS: CALCIUM 8.7 mg/dL (8.5-10.1); CREATININE 1.8 mg/dL (0.6-1.3); MAGNESIUM 2.2 mg/dL (1.8-2.4); PHOSPHORUS* 3.7 mg/dL (2.5-4.9); POTASSIUM 4.6 mmol/L (3.5-5.1)
[2020-12-11 08:48] LABS: BE -2.4 mmol/L (-2 to +3)
[2020-12-11 08:57] LABS: pH 7.299 (7.340-7.450)
[2020-12-11 08:58] LABS: PCO2 50.8 mmHg (35.0-45.0); PO2 56.4 mmHg (75.0-100.0)
--- NOTE | 2020-12-11 10:22 | NUR ---
ICU ROUNDS: VENT AT 100%. SEDATED. IV AXB AND STEROIDS. RESPIRATORY TOILETING. INSULIN GTT. BLOOD THINNERS. ID AND RENAL FOLLOWING. TEMP HD CATH PLACE THE PLAN IS TO START CRRT. FULL CODE. PROGNOSIS POOR.
--- NOTE | 2020-12-11 11:43 | CON ---
[address] [address] CONSULTATION Name: PAULAGM THURMAN Yesy Room: [address] IN M.R.#: [id number] Admission: 11/23/20 Attend Phys: Mando Vidales MD Discharge: Date of : 48 Report #: [id number] THIS REPORT FOR: cc: Tete Gutierrez,Nicole Mckeon MD ~ DATE OF CONSULTATION: 12/10/2020 NEPHROLOGY CONSULT CONSULTING PHYSICIAN: Mando Vidales MD REASON FOR CONSULTATION: Acute kidney injury. HISTORY OF PRESENT ILLNESS: A 70-year-old female who was admitted with weakness and fatigue on 11/23, was diagnosed with COVID-19 infection and I am asked to see her for rising creatinine. Her creatinine initially was 1.7 when she was admitted, eventually came down to 0.8 and was 0.9 on 12/03, since then has been slowly increasing and today it has increased up to 2.9. She is currently on Levophed and is being followed by Pulmonology, Cardiology as well as Infectious Disease. REVIEW OF SYSTEMS: Constitutional, psych, heme, eyes, ENT, respiratory, cardiac, GI, , endocrine, all negative except as documented above and as best as can be ascertained from chart review. PAST MEDICAL HISTORY: Hypertension, arthritis, GERD, right knee surgery. FAMILY HISTORY: Nonpertinent in 70-year-old female. SOCIAL HISTORY: No tobacco. CURRENT MEDICATIONS: Reviewed. PHYSICAL EXAMINATION: VITAL SIGNS: Blood pressure 110/52, pulse 82, respirations 17, temperature 37.3. GENERAL: No acute distress. HEENT: Eyes are closed. Ears externally normal. ENT, intubated. CARDIOVASCULAR: Regular rate. LUNGS: Diminished. ABDOMEN: Soft. MUSCULOSKELETAL: Positive swelling. PSYCHIATRIC: [place] [address] CONSULTATION Name: GM MITCHELL Yesy Room: [address]#: [id number] Admission: 11/23/20 Attend Phys: Mando Vidales MD Discharge: Date of : 48 Report #: [id number] LABORATORY DATA: White cell count 27, hemoglobin 8.7, platelets 100. Sodium 137, potassium 5.8, chloride 104, bicarbonate 25, BUN 109, creatinine 2.9, glucose 222, calcium 8.6, magnesium 2.4, albumin 2.1. ASSESSMENT AND PLAN: 1. Acute kidney injury in the setting of hypotension, on Levophed and COVID-19 infection. Creatinine was 0.9 on 12/03 up to 2.9 on 12/10. Vancomycin level on 12/09 was 25. Kidney ultrasound was limited, but no acute findings. UA shows some granular casts as well as hematuria. The patient was also on losartan, hydrochlorothiazide and meloxicam. 2. History of hypertension. 3. Diabetes, type 2. 4. Hypotension, requiring vasopressor. 5. Hematuria. On 11/23, UA had no evidence of hematuria. 6. Hypoalbuminemia with an albumin of 2.1. 7. COVID-19 infection. 8. Right renal cyst 1.8 cm in size without complex features mentioned on ultrasound. 9. Atrial fibrillation with rapid ventricular response. PLAN: 1. Hyperkalemia. We will ask dietitian to switch to low potassium tube feed. The patient is nonoliguric. Lasix was given. Repeat lab is ordered. 2. Check CK. 3. Respiratory acidosis. Management per Pulmonary. 4. Vasopressor support. 5. Check lab again in a.m. Thank you for requesting my opinion in the care and management of this patient. <ELECTRONICALLY SIGNED> By: Nicole Prince MD 12/11/20 1143 1014 1030Nicole Prince MD /nt
[2020-12-11 12:52] LABS: HEMATOCRIT 30.6 % (37.0-47.0); HEMOGLOBIN 9.9 gm/dL (12.0-15.0); MCH 24.9 pg (26.0-34.0); MCHC 32.5 g/dL (28.0-37.0); MCV 76.6 fL (80.0-100.0); MPV 9.6 fl. (7.2-11.1); RDW-CV 16.6 % (10.5-14.5); WBC 37.1 thou/uL (4.0-11.0)
[2020-12-11 12:58] LABS: CALCIUM 8.9 mg/dL (8.5-10.1); CREATININE 1.7 mg/dL (0.6-1.3); MAGNESIUM 2.1 mg/dL (1.8-2.4); PHOSPHORUS* 3.8 mg/dL (2.5-4.9); POTASSIUM 4.8 mmol/L (3.5-5.1)
[2020-12-11 16:45] LABS: HEMATOCRIT 27.9 % (37.0-47.0); HEMOGLOBIN 9.1 gm/dL (12.0-15.0); MCH 24.9 pg (26.0-34.0); MCHC 32.5 g/dL (28.0-37.0); MCV 76.7 fL (80.0-100.0); RBC 3.64 mil/uL (4.20-5.00); RDW-CV 16.4 % (10.5-14.5); WBC 32.8 thou/uL (4.0-11.0)
[2020-12-11 16:53] LABS: CALCIUM 8.7 mg/dL (8.5-10.1); CREATININE 1.6 mg/dL (0.6-1.3); MAGNESIUM 1.8 mg/dL (1.8-2.4); PHOSPHORUS* 3.2 mg/dL (2.5-4.9); POTASSIUM 4.5 mmol/L (3.5-5.1)
[2020-12-11 21:10] LABS: PCO2 48.6 mmHg (35.0-45.0); PO2 65.2 mmHg (75.0-100.0); pH 7.306 (7.340-7.450)
[2020-12-11 21:17] LABS: HEMATOCRIT 24.9 % (37.0-47.0); HEMOGLOBIN 8.2 gm/dL (12.0-15.0); MCH 25.3 pg (26.0-34.0); MCHC 32.8 g/dL (28.0-37.0); MCV 77.1 fL (80.0-100.0); MPV 9.4 fl. (7.2-11.1); RBC 3.23 mil/uL (4.20-5.00); RDW-CV 16.4 % (10.5-14.5); WBC 29.7 thou/uL (4.0-11.0)
[2020-12-11 21:28] LABS: CALCIUM 8.3 mg/dL (8.5-10.1); CREATININE 1.7 mg/dL (0.6-1.3); MAGNESIUM 1.8 mg/dL (1.8-2.4); PHOSPHORUS* 3.4 mg/dL (2.5-4.9); POTASSIUM 4.6 mmol/L (3.5-5.1)
[2020-12-12] VITALS (59 sets, daily range): BP systolic 86–250; BP diastolic 36–93
[2020-12-12 04:03] LABS: HEMATOCRIT 24.7 % (37.0-47.0); HEMOGLOBIN 7.9 gm/dL (12.0-15.0); MCH 24.8 pg (26.0-34.0); MCHC 32.1 g/dL (28.0-37.0); MCV 77.4 fL (80.0-100.0); MPV 10.2 fl. (7.2-11.1); NUCLEATED RBCS 0 /100WBC; PLATELET COUNT* 64 thou/uL (150-400); RBC 3.19 mil/uL (4.20-5.00); RDW-CV 16.2 % (10.5-14.5); WBC 28.7 thou/uL (4.0-11.0)
[2020-12-12 04:19] LABS: ALBUMIN 2.5 g/dL (3.4-5.0); CALCIUM 8.6 mg/dL (8.5-10.1); PHOSPHORUS* 3.8 mg/dL (2.5-4.9); POTASSIUM 4.7 mmol/L (3.5-5.1); TOTAL BILIRUBIN 0.4 mg/dL (<0.1-1.0); TOTAL PROTEIN 4.9 g/dL (6.4-8.2)
[2020-12-12 06:53] LABS: ABSOLUTE LYMPHOCYTES 0.6 thou/uL (0.8-5.3); ABSOLUTE MONOCYTES 0.6 thou/uL (0.0-1.2); ABSOLUTE NEUTROPHILS 27.6 thou/uL (1.6-8.1)
[2020-12-12 06:54] LABS: OVALOCYTES 1+; POLYCHROMASIA 1+
[2020-12-12 06:55] LABS: HYPOCHROMASIA 1+; POIKILOCYTOSIS 1+
[2020-12-12 06:56] LABS: SCHISTOCYTES Occasional
[2020-12-12 06:57] LABS: CLUMPED PLTS OCCASIONAL; PLATELET ESTIMATE DECREASED
[2020-12-12 06:58] LABS: BURR CELLS Occasional
[2020-12-12 09:04] LABS: BE -0.1 mmol/L (-2 to +3); PO2 81.2 mmHg (75.0-100.0); pH 7.316 (7.340-7.450)
[2020-12-12 09:06] LABS: PCO2 52.8 mmHg (35.0-45.0)
[2020-12-13] VITALS (24 sets, daily range): BP systolic 94–120; BP diastolic 35–42
[2020-12-13 00:28] LABS: BE -2.2 mmol/L (-2 to +3)
[2020-12-13 00:32] LABS: PCO2 55.2 mmHg (35.0-45.0); PO2 49.2 mmHg (75.0-100.0); pH 7.272 (7.340-7.450)
--- NOTE | 2020-12-13 08:36 | NUR ---
PATIENT BEGAN RESPIRATORY DECOMPENSATION AROUND 2330. O2 SAT DECREASING WITHOUT RECOVERY. SPOKE WITH DR. INIGUEZ REGARDING PATIENT STATUS AND THE INTENT TO WITHDRAW CARE ON DAY SHIFT. ABG AND CXR DONE, SHOWING WORSENING CONDITION AND TRACE PNEUMOTHORAX. RESULTS SHARED WITH DR. INIGUEZ, NO ORDERS RECIEVED. PATIENT CONTINUED TO DETERIORATE THROUGHOUT THE NIGHT. CALLED FAMILY TO THE PATIENTS BEDSIDE. THE PATIENT'S DAUGHTERS, CRISTOPHER, IBRAHIMA, AND CHAZ, ALONG WITH THE PATIENT'S SISTER EDUARDO WERE PRESENT. ALL FAMILY MEMBERS WERE IN AGREEMENT TO WITHDRAW CARE. ON-CALL PHYSICIAN, DR. MACIAS, WOULD NOT APPROVE WITHDRAW OF CARE WITHOUT A WRITTEN DPOA ON FILE. FAMILY REPORTS THE PATIENT HAD NOT HAD HER PAPERWORK SIGNED BEFORE BEING INTUBATED AND THEREFORE DID NOT HAVE A DPOA ON FILE. SUPPORTIVE MEASURES MAINTIANED THROUGHOUT THE REST OF THE SHIFT. SPOKE WITH DR. DOLL EXPLAINING THE SITUATION OVERNIGHT AND ORDERS WERE OBTAINED TO WITHDRAW CARE. FAMILY VISITED THE PATIENT AT BEDSIDE. PATIENT'S DAUGHTERS AND SISTER WERE PRESENT DURING WITHDRAW OF CARE. EXTUBATED BY RT AT 0815. VASOPRESSOR SUPPORT TURNED OFF, FENTANYL GTT INFUSING. PATIENT WAS PRONOUNCED BY THIS PLATE STACKER HAND AND HILARY COLEY AT 0825. SPIRITUAL CARE PRESENT FOR THE FAMILY AT THIS TIME.
== END 2020-12-13 08:25 | DRG 870 ==
LOC: M.ERS 11:23 → M.ORTHSURG 12:16 → M.TBA-ER 12:16 → M.ORTHSURG 20:04 → M.ICU 12-03 05:26
PROVIDERS: Family Medicine; Internal Medicine; Internal Medicine Critical Care Medicine; Internal Medicine Nephrology; Pediatrics; Registered Nurse; ADMIT Internal Medicine; ATTEND Internal Medicine
PROC: 5A0935A Assistance with Respiratory Ventilation, Less than 24 Consecutive Hours, High Flow/Velocity Cannula (ICD-10-PCS; 2020-11-23)
PROC: 5A0935A Assistance with Respiratory Ventilation, Less than 24 Consecutive Hours, High Flow/Velocity Cannula (ICD-10-PCS; 2020-11-24)
PROC: 5A0935A Assistance with Respiratory Ventilation, Less than 24 Consecutive Hours, High Flow/Velocity Cannula (ICD-10-PCS; 2020-11-27)
PROC: 5A0935A Assistance with Respiratory Ventilation, Less than 24 Consecutive Hours, High Flow/Velocity Cannula (ICD-10-PCS; 2020-11-28)
PROC: 5A0935A Assistance with Respiratory Ventilation, Less than 24 Consecutive Hours, High Flow/Velocity Cannula (ICD-10-PCS; 2020-11-29)
PROC: 5A0935A Assistance with Respiratory Ventilation, Less than 24 Consecutive Hours, High Flow/Velocity Cannula (ICD-10-PCS; 2020-12-01)
PROC: XW13325 Transfusion of Convalescent Plasma (Nonautologous) into Peripheral Vein, Percutaneous Approach, New Technology Group 5 (ICD-10-PCS; principal; 2020-12-02)
PROC: 5A0935A Assistance with Respiratory Ventilation, Less than 24 Consecutive Hours, High Flow/Velocity Cannula (ICD-10-PCS; principal; 2020-12-02)
PROC: 5A1955Z Respiratory Ventilation, Greater than 96 Consecutive Hours (ICD-10-PCS; 2020-12-03)
PROC: 02H633Z Insertion of Infusion Device into Right Atrium, Percutaneous Approach (ICD-10-PCS; 2020-12-03)
PROC: XW033H5 Introduction of Tocilizumab into Peripheral Vein, Percutaneous Approach, New Technology Group 5 (ICD-10-PCS; 2020-12-03)
PROC: 0BH17EZ Insertion of Endotracheal Airway into Trachea, Via Natural or Artificial Opening (ICD-10-PCS; 2020-12-03)
PROC: XW033E5 Introduction of Remdesivir Anti-infective into Peripheral Vein, Percutaneous Approach, New Technology Group 5 (ICD-10-PCS; 2020-12-03)
PROC: 02H633Z Insertion of Infusion Device into Right Atrium, Percutaneous Approach (ICD-10-PCS; 2020-12-10)
DX: A41.89 Other specified sepsis (principal); U07.1 COVID-19; J80 Acute respiratory distress syndrome; J12.82 Pneumonia due to coronavirus disease 2019; N17.9 Acute kidney failure, unspecified; M19.90 Unspecified osteoarthritis, unspecified site; I10 Essential (primary) hypertension; K21.9 Gastro-esophageal reflux disease without esophagitis; E11.9 Type 2 diabetes mellitus without complications; I48.0 Paroxysmal atrial fibrillation; E87.70 Fluid overload, unspecified; E87.6 Hypokalemia; I95.9 Hypotension, unspecified; N28.1 Cyst of kidney, acquired; E87.5 Hyperkalemia; R31.9 Hematuria, unspecified; E86.0 Dehydration; Z79.899 Other long term (current) drug therapy; D64.9 Anemia, unspecified; J98.2 Interstitial emphysema; X58.XXXA Exposure to other specified factors, initial encounter; T70.29XA Other effects of high altitude, initial encounter; D69.6 Thrombocytopenia, unspecified; Z66 Do not resuscitate; Z51.5 Encounter for palliative care; Z90.710 Acquired absence of both cervix and uterus; Z88.6 Allergy status to analgesic agent; Z79.82 Long term (current) use of aspirin; R65.20 Severe sepsis without septic shock